=== PATIENT | male | born 1975 | race Caucasian/White ===

== ENCOUNTER 2020-07-02 15:14 | Emergency (ER) | payer BC, SELFPAY ==
[2020-07-02 15:19] VITALS: BP 164/105; PULSE 96; RESP 15; TEMP 37; O2SAT 95
--- NOTE | 2020-07-02 15:30 | DI.RAD_ITS ---
EXAM: XR FINGER LT MIDDLE CLINICAL HISTORY: deep lac. TECHNIQUE: 2D digital imaging was performed. COMPARISON: No exams were available for comparison FINDINGS: Soft tissue avulsion seen medially and there is a small sub millimeter foreign body evident. This is mid medial aspect of the 3rd-middle finger. No fracture evident this location. IMPRESSION: No fracture but laceration with presence of foreign body. DATA REPOSITORY: RADIATION DOSE DELIVERED:
[2020-07-02] MEDS: Bupivacaine 0.5% Pres-Free 30 ML VIAL IJ (15:42)
--- NOTE | 2020-07-02 16:28 | ED.GENADUL_ITS ---
Discharge Plan Disposition Patient Disposition: HOME Condition: Stable Discharge Details Clinical Impression: Laceration of left middle finger Primary Care Provider: None,None ED Provider: Efrain Morel Home Meds and New Rx's Prescriptions: No Action No Known Home Meds RF: 0 Discharge Instructions Instructions: Finger Laceration (ED) Additional Instructions: Keep sling intact dry for the next 2 days. Change dressing daily thereafter with sterile gauze. No use of left use until cleared. Please take ibuprofen over the counter. Take 600mg by mouth every 6 hours as ne eded for pain. Please take acetaminophen (tylenol) - 650mg every 6 hours by mouth as needed for pain. Do not take more than recommended. Follow-up with orthopedics. Call for him to be seen next week. Return to the emergency department for any worse part or new concerning symptoms including redness, warmth, discharge from the wound, increased pain, redness. Referrals: [facility] [Provider Group] Discharge Data Discharge Date/Time-TO BE ENTERED AT DEPARTURE: 07/02/20 16:43 Medical Decision Making 45-year-old male here with deep laceration to left third digit, flexor tendons intact, neurologically intact. Past medical record reviewed and tetanus up-to-date 2017. Consider fracture. X-ray of the finger reviewed and interpreted by radiology: No fracture but laceration with presence of foreign body. I consulted Dr. Diego, on-call orthopedics, he examined patient recommended closure and dressing with outpatient follow-up in 1 week. Digital block performed, wound irrigated with copious sterile saline, no foreign body identified, wound closed loosely. Sterile dressing applied. Superficial lacerations of his second and fourth digit were cleansed and dressed by nursing. HPI General Mode of arrival: ambulatory . Date/Time Provider Initiated Documentation: 07/02/20 15:27 . Limitations to Documentation: no limitations . Information obtained by: patient . HPI Narrative: 45-year-old male presents with chief complaint of laceration. Patient sustained laceration to his left third digit just prior to arrival. He notes he cut his finger on a steel metal machine. Laceration severe. Bleeding. Bleeding improved with pressure dressing. No associated numbness. Related Data Home Medications Medication Instructions Recorded Confirmed Unknown [No Known Home Meds] 07/02/20 07/02/20 Allergies Allergy/AdvReac Type Severity Reaction Status Date / Time Penicillins Allergy Unknown Unverified 07/02/20 15:19 General Stated Complaint: Laceration GRISEL: 3 Review of Systems Integumentary/Breasts Skin/Breast: Reports as per HPI Neurologic Neurologic: Reports as per HPI [facility] Social History Smoking/Tobacco Use Status: Current every day Smoking risk assessment performed?: Yes Alcohol Intake: current Alcohol Intake frequency: a few times a week Drug use: Occasionally Substance use type: marijuana Do you feel safe at home: Yes Do you feel safe in your relationship?: Yes Exam Const General: cooperative and no acute distress Cardio Rate: regular rate and not tachycardic Rhythm: regular rhythm Skin Trauma: abrasion (Superficial abrasion to left second and fourth digits) and laceration (4 cm curved deep laceration left third digit over PIP) Neuro General: patient alert and patient awake Sensory Exam: other (She extremity, two-point discrimination intact) Extrem Left upper extremity: hand Details: normal capillary refill, neurosensory exam normal, tendon exam normal and vascular exam Details: radial pulse present Details: 2+ Course Vital Signs Vital signs: Vital Signs Temperature 37 C 07/02/20 15:19 Pulse 96 H 07/02/20 15:19 Respiratory Rate 15 07/02/20 15:19 Blood Pressure 164/105 H 07/02/20 15:19 Pulse Oximetry 95 07/02/20 15:19 Temperature 37 C 07/02/20 15:19 Temperature Source Temporal Artery Scan 07/02/20 15:19 Pulse 96 H 07/02/20 15:19 Respiratory Rate 15 07/02/20 15:19 Respiratory Effort Non-Labored 07/02/20 15:25 Blood Pressure 164/105 H 07/02/20 15:19 Blood Pressure Position Supine 07/02/20 15:19 Pulse Oximetry 95 07/02/20 15:19 Oxygen Delivery Method Room Air 07/02/20 15:19 Oxygen Flow Rate 0 07/02/20 15:19 Pain Level 6 07/02/20 16:13 Procedures Laceration Laceration 1: Site: hand Side (If applicable): left Size (cm): 4 Description: flap Depth: simple, single layer Pre-repair: wound explored, irrigated extensively and deep structures intact Skin layer closed with: nylon Size (cm): 4-0 Number of sutures: 5 Technique: simple, interrupted Nerve Block Nerve Block 1: Time out performed: Yes Local Anesthetic: Bupivicaine 0.5% Amount of anesthesia used (mL): 4 Side: left Nerve Blocks: digital Procedure Successful: Yes Patient Tolerated Procedure: well Complications: none
== END 2020-07-02 16:43 | disposition home or self-care (01) ==
PROVIDERS: Emergency Provider Student in an Organized Health Care Education/Training Program
DX: S61.223A Laceration with foreign body of left middle finger without damage to nail, initial encounter (principal); S60.411A Abrasion of left index finger, initial encounter; S60.415A Abrasion of left ring finger, initial encounter; W31.9XXA Contact with unspecified machinery, initial encounter
CPT/HCPCS: 12002; 99281; 73140

== ENCOUNTER 2024-03-04 17:10 | Emergency (ER) | payer OTHER, SELFPAY ==
[2024-03-04 17:30] VITALS: BP 168/86; PULSE 81; RESP 15; TEMP 36.6; O2SAT 97
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
== END 2024-03-04 19:05 | disposition home or self-care (01) ==
PROVIDERS: Emergency Provider Nurse Practitioner Family
DX: M79.601 Pain in right arm (principal); F17.200 Nicotine dependence, unspecified, uncomplicated
CPT/HCPCS: 99283; 73080

== ENCOUNTER 2024-04-02 01:37 | Outpatient (CLI) | payer OTHER, SELFPAY ==
--- NOTE | 2024-04-02 07:15 | DI.MRI_ITS ---
Exam(s) MR UPPER JOINT RT WO EXAM: MR UPPER JOINT RT WO CLINICAL HISTORY: R ARM INJURY,traumatic rupture rt distal biceps tendon,s46.211a. TECHNIQUE: Multiplanar multisequence MRI was performed. COMPARISON: Plain films 04 March 2024 FINDINGS: Elbow joint: No joint effusion Bones: There is no fracture or contusion pattern. Biceps tendon: Partial tear involving approximately half of the tendon, consistent with rupture of th e short head of the biceps tendon with intact long head of the tendon at the insertion on the radial tubercle. Retraction of approximately 1 cm. Fluid surrounding the biceps tendon. Brachialis tendon: Intact. No tendinosis. Common flexor tendons: Intact. No tendinosis. Common extensor tendons: Intact. No tendinosis. Soft tissues: Unremarkable. IMPRESSION: Tear with retraction of the short head of the biceps tendon. The long head appears intact at the inse rtion. DATA REPOSITORY: al
== END 2024-04-02 01:57 ==
LOC: DI 01:38
PROVIDERS: Visit Provider Student in an Organized Health Care Education/Training Program
DX: S46.211D Strain of muscle, fascia and tendon of other parts of biceps, right arm, subsequent encounter (principal); X58.XXXD Exposure to other specified factors, subsequent encounter
CPT/HCPCS: 73221

== ENCOUNTER 2024-04-04 12:04 | Day surgery (SDC) | payer OTHER, SELFPAY ==
--- NOTE | 2024-04-04 12:11 | W.ANESPRE ---
General Info Height: 5 ft 8 in Weight: 82.554 kg Body Mass Index (BMI): 27.6 Surgical Procedure: Operation Date: 04/04/24 12:55 Proposed Procedure Side Surgeon p Distal Bicep Tendon Repair Right Ryan Hughes MD Meds Allergies and Home Medications Allergies Allergy/AdvReac Type Severity Reaction Status Date / Time Penicillins Allergy Unknown Anaphylaxis Verified 04/03/24 15:11 Home Medication ?Medication ?Instructions ?Recorded Unknown [No Known Home Meds] 07/02/20 Current Visit Medications: Current Medications Generic Name Dose Route Start Last Admin Trade Name Freq PRN Reason Stop Dose Admin Ringer's Solution 1,000 mls @ 30 mls/hr 04/04/24 06:00 IV 04/04/24 23:59 INFUSION JUDD Cefazolin Sodium/Dextrose 2 gm in 50 mls @ 100 mls/hr 04/04/24 06:00 Ancef Duplex IVPB 04/04/24 23:59 PREOP JUDD Tranexamic Acid/Sodium Chloride 1,000 mg in 100 mls @ 600 mls/hr 04/04/24 06:00 IVPB 04/04/24 23:59 PREOP JUDD IV Miscellaneous Supplies 1 each 04/04/24 06:00 Iv Access IV 04/04/24 23:59 DIRECTED JUDD Oxycodone HCl 0 mg 04/04/24 10:03 Oxycodone 5 Mg Tab PO 05/04/24 10:02 Q3H PRN PRN Pain Sodium Chloride 0 ml 04/04/24 06:00 Normal Saline Flush 10 Ml Syr IV 04/04/24 23:59 PRN PRN Sodium Chloride 0 ml 04/04/24 06:00 Normal Saline 10 Ml Vial IJ 04/04/24 23:59 DIRECTED PRN Sterile Water 0 ml 04/04/24 06:00 Water,Injection,Sterile 10 Ml Vial IJ 04/04/24 23:59 DIRECTED PRN PFSH Active Problems Active Problems: Problem Status Onset Code Traumatic rupture of right distal biceps tendon Acute S46.211A Laceration of left middle finger Acute 07/02/20 S61.213A Medical History Medical History (Updated 04/04/24 @ 00:07 by GIANNI CACERES) Traumatic amputation of right middle finger Surgical History Surgical History (Updated 04/03/24 @ 15:10 by Jamil Murray H/O wisdom tooth extraction Tobacco Smoking/Tobacco Use Status: Current every day Tobacco Type: cigarettes Alcohol Alcohol Intake: current Alcohol intake frequency: a few times a week Substance Use Substance use: Occasionally Substance use type: marijuana Vital Signs and Lab Results Lab Results Blood Type / Crossmatch: No Data to Display Complete Blood Count: No Data to Display Complete Metabolic Panel: No Data to Display Liver Function Panel: No Data to Display Coagulation Panel: No Data to Display Cardiac Panel: No Data to Display Arterial Blood Gas: No Data to Display Venous Blood Gas: No Data to Display Pancreas Panel: No Data to Display Thyroid Panel: No Data to Display Infectious Disease: No Data to Display Blood Cultures: No Data to Display Toxicology Panel: No Data to Display Anesthesia Assessment and Plan Anesthesia History Personal History: No History of Anesthesia Complications Family History: No Family History of Anesthesia Complications Implantable Cardiac Device Does patient have a Pacemaker or an ICD?: No Anesthesia Plan Resuscitation Status: Full Code Anesthesia Technique: General Anesthesia Airway Planned: Endotracheal Tube Pain Management: Surgeon and patient request nerve block Monitors Used: Standard Monitors Preoperative Comments:: 48 yo male for distal bicep repair. Sig PMHx: smoker, occ EtOH/cannabis.
== END 2024-04-04 12:05 | disposition home or self-care (01) ==
LOC: SUR 12:05
PROVIDERS: Visit Provider Student in an Organized Health Care Education/Training Program
DX: Z53.09 Procedure and treatment not carried out because of other contraindication (principal)
CPT/HCPCS: J0665; J1100; J2250; J2405; J2704

== ENCOUNTER 2024-04-11 08:45 | Day surgery (SDC) | payer OTHER, SELFPAY ==
[2024-04-11] VITALS (19 sets, daily range): BP systolic 89–151; BP diastolic 41–78; PULSE 68–84; RESP 13–19; TEMP 36.1–37.1; O2SAT 94–98; BMI 27.6
--- NOTE | 2024-04-11 07:18 | PDOC.DSDIS_ITS ---
Date of service: 04/11/24 Discharge Plan Disposition Patient Disposition: Home Condition: Stable Discharge Details Attending Provider: Ryan Hughes Primary Care Provider: None,None Home Meds and New Rx's Prescriptions: New naproxen 250 mg tablet 250 - 500 mg PO BID PRN (Reason: Moderate pain) Qty: 40 0RF oxycodone 5 mg tablet 5 - 10 mg PO Q4H PRN (Reason: Moderate to severe pain) Qty: 18 0RF Discharge Instructions Additional Instructions: Surgery: Right distal biceps tendon repair Activity: Protected use right upper extremity for about 2-3 months. Use the sling for support when out of the house for about 1 month. Otherwise, you may rest the right upper extremity at your side or on pillows. Encourage full elbow range of motion. Gentle use okay (e.g., writing, typing, eating, and drinking). Do not lift more than a couple pounds (i.e., coffee) for 6 weeks. A physical therapy prescription will be sent electronically to start about 3 weeks. PT protocol: Immediate full active range of motion okay Isometrics after 1 month Concentric strengthening after 2 months Eccentric strengthening after 3 months Prescriptions: Naproxen 250 mg take 1-2 every 12 hours with a meal as needed for moderate pain Oxycodone 5 mg take 1-2 every 4-6 hours as needed for severe pain You may use [id number] Tylenol (acetaminophen) as needed for mild pain. These pain medications may be taken all at once or in different combinations as needed. Also, recommend Colace (docusate) as a stool softener as surgery and pain medicine cause constipation. You may try [id number] diphenhydramine (Benadryl) 25-50 mg nightly as a sleep aid Dressings: Leave splint and dressing in place until follow-up. Keep clean and dry at all times. Follow-up: 04/23/24 at 2:[address] Hughes You may take off the leg compression stockings this evening at home. You may also leave them on a few days longer if you have a history of leg swelling or edema. Let us know right away if you develop any redness, drainage, fevers, chest pain, or trouble breathing. Do not drink alcohol or drive for at least 24 hours after anesthesia. Please call the office during business hours with any questions or concerns. Stand Alone Forms: Anesthesia Discharge Inst., Rosario Ahn (DSU) Referrals: Ryan Hughes MD [ [facility] STAFF PHYSICIAN] - 04/23/24 2:00 pm Discharge Orders Discharge Orders: Discharge Order (Routine); Ordered 04/11/24 Ordered By: Rojelio Peterson DS: Diagnosis Discharge Diagnosis (1) Traumatic rupture of right distal biceps tendon: Status: Acute
--- NOTE | 2024-04-11 07:45 | ROE_ITS ---
Operative Note Operative Note PRE-OP DIAGNOSIS: Subacute partial right distal biceps rupture POST-OP DIAGNOSIS: same PROCEDURE: Right distal biceps repair, CPT #34943 SURGEON: Ryan Hughes MARKETING PROJECT COORDINATOR: Rojelio Peterson ANESTHESIA TYPE: Local By Surgeon, General LMA/ETT and Primary Nerve Block Refer to Anesthesia Record ESTIMATED BLOOD LOSS: 5 COMPLICATIONS: None Patient was transported to: PACU Patient's condition: stable Implants: Arthrex distal biceps button Indications: Please see complete medical record for details. Findings: 50+ percent distal biceps tendon rupture with minimal retraction, probably intact long head with complete rupture of the short head. No significant scarring or retraction of the torn segment, which was still within the radial tuberosity bursa. Procedure Description: In the operating room, general anesthesia was induced. The patient was positioned supine on the operating room table. All bony prominences were well- padded. Preoperative antibiotics were administered. The right elbow was prepped and draped in the usual sterile fashion. The correct patient, procedure, and side of the procedure were all verified prior to incision. 20 cc 0.25% bupivacaine containing epinephrine was infiltrated about the longitudinal incision localized fluoroscopically over the radial tuberosity on the volar proximal forearm. The incision was opened and care was taken to spread and preserve small veins and nerves. Deeper tissues were spread apart and the forearm is maintained in supination while larger veins were preserved and a crossing bundle coagulated with the pronator and flexors retracted ulnarly and the supinator gently retracted radially. The distal biceps insertion on the radial tuberosity was still covered in bursa, which was opened and expose the torn stump and of at least 50% of the tendon. The remaining more proximal seg ment still had some partial and firm attachments, which were carefully dissected off the bone to preserve tendon length. The tendon and was combined and trimmed and contoured together. It was secured and prepared for fixation with FiberWire fiber loop. The end was tapered in size to fit in the planned socket. The radial tuberosity was then localized again, fluoroscopy used to confirm appropriate placement, and the spade tip drill sent just bicortically followed by unicortical socket creation with the 8 mm low-profile reamer. The reamings were removed thoroughly with copious irrigation. The FiberWire ends were then loaded in a modified tension slide fashion on the cortical button, which was passed into the socket and flipped on the far cortex with excellent fixation strength. The preloaded tensioning sutures were then used to deliver the tendon with the help of a Atlas into the socket with the elbow in moderate flexion. Creep was removed from the construct and final tensioning done with good biceps tendon repair contour and socket placement. Knots were tied, single free tail passed around the biceps tendon and backup knots tied before the tails were cut. The wound was copiously irrigated. Hemostasis was appropriate. Subcutaneous tissue was closed using a couple 2-0 Monocryl buried erupted followed by skin closure with 3-0 Monocryl running. The incision covered in skin glue and a Mepilex Band-Aid. The elbow was gently wrapped in Jelani bandage and the extremity placed into a sling. The patient awoke from anesthesia without complication and was transferred to the recovery room in a stable condition. Date of Procedure: 04/11/24
[2024-04-11] MEDS: Lactated Ringers 1,000 ML 30 ML IV (09:47)
--- NOTE | 2024-04-11 10:13 | W.ANESPRE ---
General Info Date of Service Date Performed: 04/11/24 Height: 5 ft 8 in Weight: 82.6 kg Body Mass Index (BMI): 27.6 Surgical Procedure: Operation Date: 04/11/24 09:55 Proposed Procedure Side Surgeon p Distal Bicep Tendon Repair Right Ryan Hughes MD Meds Allergies and Home Medications Allergies Allergy/AdvReac Type Severity Reaction Status Date / Time Penicillins Allergy Unknown Anaphylaxis Verified 04/11/24 09:15 Home Medication ?Medication ?Instructions ?Recorded Unknown [No Known Home Meds] 07/02/20 Current Visit Medications: Current Medications Generic Name Dose Route Start Last Admin Trade Name Freq PRN Reason Stop Dose Admin Droperidol 0.625 mg 04/11/24 09:23 Droperidol 2.5 Mg/Ml Vial IVP 05/11/24 09:22 DIRECTED PRN Ephedrine Sulfate 0 mg 04/11/24 09:23 Ephedrine 25 Mg/5 Ml Syringe IVP 05/11/24 09:22 DIRECTED PRN Fentanyl 0 mcg 04/11/24 09:23 Fentanyl 100 Mcg/2 Ml Vial IVP 05/11/24 09:22 DIRECTED PRN Hydromorphone HCl 0 mg 04/11/24 09:23 Hydromorphone 1 Mg/Ml Syr IVP 05/11/24 09:22 DIRECTED PRN Ringer's Solution 1,000 mls @ 30 mls/hr 04/11/24 06:00 04/11/24 09:47 IV 04/11/24 23:59 30 mls/hr INFUSION JUDD Administration Cefazolin Sodium/Dextrose 2 gm in 50 mls @ 100 mls/hr 04/11/24 06:00 Ancef Duplex IVPB 04/11/24 23:59 PREOP JUDD Tranexamic Acid/Sodium Chloride 1,000 mg in 100 mls @ 600 mls/hr 04/11/24 06:00 IVPB 04/11/24 23:59 PREOP JUDD IV Miscellaneous Supplies 1 each 04/11/24 06:00 Iv Access IV 04/11/24 23:59 DIRECTED JUDD Naloxone HCl 0 mg 04/11/24 09:23 Naloxone 0.4 Mg/Ml Vial IVP 05/11/24 09:22 PRN PRN Oxycodone HCl 0 mg 04/11/24 07:17 Oxycodone 5 Mg Tab PO 05/11/24 07:16 Q3H PRN PRN Pain Sodium Chloride 0 ml 04/11/24 06:00 Normal Saline Flush 10 Ml Syr IV 04/11/24 23:59 PRN PRN Sodium Chloride 0 ml 04/11/24 06:00 Normal Saline 10 Ml Vial IJ 04/11/24 23:59 DIRECTED PRN Sterile Water 0 ml 04/11/24 06:00 Water,Injection,Sterile 10 Ml Vial IJ 04/11/24 23:59 DIRECTED PRN PFSH Active Problems Active Problems: Problem Status Onset Code Traumatic rupture of right distal biceps tendon Acute S46.211A Laceration of left middle finger Acute 07/02/20 S61.213A Medical History Medical History Traumatic amputation of right middle finger Surgical History Surgical History H/O wisdom tooth extraction Tobacco Smoking/Tobacco Use Status: Current every day Tobacco Type: cigarettes Alcohol Alcohol Intake: current Alcohol intake frequency: a few times a week Substance Use Substance use: Occasionally Substance use type: marijuana Vital Signs and Lab Results Vital Signs Most Recent Vital Signs in EMR: Most Recent Vital Signs Temp Pulse Pulse Ox 37.1 C 82 98 04/11/24 09:17 04/11/24 09:17 04/11/24 09:17 Lab Results Blood Type / Crossmatch: No Data to Display Complete Blood Count: No Data to Display Complete Metabolic Panel: No Data to Display Liver Function Panel: No Data to Display Coagulation Panel: No Data to Display Cardiac Panel: No Data to Display Arterial Blood Gas: No Data to Display Venous Blood Gas: No Data to Display Pancreas Panel: No Data to Display Thyroid Panel: No Data to Display Infectious Disease: No Data to Display Blood Cultures: No Data to Display Toxicology Panel: No Data to Display Anesthesia Assessment and Plan Anesthesia History Personal History: No History of Anesthesia Complications Family History: No Family History of Anesthesia Complications Exercise Tolerance Exercise Tolerance: Metabolic Equivalents>4 Pertinent Negatives Pertinent Negatives: No Symptoms of GERD Cardiac & Pulmonary Exam Cardiac Exam: Normal S1/S2 Heart Sounds Pulmonary Exam: Clear Bilateral Breath Sounds Implantable Cardiac Device Does patient have a Pacemaker or an ICD?: No Airway Exam Known Difficult Airway: No Mallampati Class: 2 Mouth Opening: Normal (> 3cm) Thyromental Distance: Greater than 3 cm Neck Range of Motion: Full ROM Neck Circumference: Normal Teeth Condition: Removable Dentures/Plates Lower ASA Classification ASA Score: ASA 2 Emergency Case?: No NPO Status NPO Status: NPO Clears >2 hours, Solids >8 hours Anesthesia Plan Resuscitation Status: Full Code Anesthesia Technique: General Anesthesia Airway Planned: Endotracheal Tube Monitors Used: Standard Monitors
[2024-04-11] MEDS: ceFAZolin 2 GM/50 ML BAG IVPB (10:51)
[2024-04-11] MEDS: TRANEXAMIC ACID/SOD. CHL. 1,000 MG/100 ML BAG 600 MG IVPB (11:05)
[2024-04-11] MEDS: Bupivacaine 0.25% Pres-Free W/EPI 30 ML VIAL (11:27)
--- NOTE | 2024-04-11 11:31 | W.ANESNERVE ---
Nerve Block Single Injection Procedure Date and Time Date Performed: 04/11/24 Procedure Start: 10:29 Location Where Procedure Performed Procedure Location: Day Surgery Unit Reason Performed: Postoperative Analgesia Requesting Provider: Ryan Hughes Timeout Performed Timeout Performed: Yes Monitoring Used ECG, Blood Pressure, SpO2, ETCO2 and See EMR for corresponding vital signs Sterility Sterility: Hand Hygiene, Surgical Cap, Surgical Mask, Sterile Gloves and Chlorhexidine Sedation Given During Procedure Sedation Given (Indicate Dose Given): Versed IV Dose:: 3mg IVP Patient Mental Status Patient Mental Status: Sedate with meaningful communication Nerve Block 1st Nerve Block: Laterality: Right Block Type: Supraclavicular Ultrasound Image Saved?: Yes Needle / Catheter Used: 100mm SonoPlex II Local Anesthetic Bolus (Indicate Dose Given): Lidocaine used for local infiltration of skin, Injected in 3-5ml increments after negative blood aspiration and Ropivacaine 0.5% Dose:: 0.5%/25cc (125mg) Additives (Indicate Dose Given): Epinephrine to make 1:200,000 (5mcg/ml) Dose:: 125mcg and Decadron Dose:: 10mg PF Ultrasound: Sterile probe cover and gel used Nerve Stimulator: Not Used Paresthesia: None Procedure Tolerated: No Complications and Patient tolerated well Procedure Outcome: Successful Performed By: Jeffery Pizano
--- NOTE | 2024-04-11 12:35 | DI.RAD_ITS ---
Exam(s) XR ELBOW RT LIMITED EXAM: XR ELBOW RT LIMITED CLINICAL HISTORY: Traumatic rupture of right distal biceps tendon TECHNIQUE: 2D and realtime digital imaging was performed. CONTRAST MATERIAL: Refer to procedure report. COMPARISON: CR XR ELBOW RT COMPLETE from 03/04/2024 MR MR UPPER JOINT RT WO from 04/02/2024 FINDINGS: Fluoroscopy was provided for Dr. Hughes during the performance of a biceps tendon repair. Please re paul to the procedure report for complete details. Ka,r=0.19 mGy IMPRESSION: RADIATION DOSE DELIVERED: 0.0 0.0 0
--- NOTE | 2024-04-11 13:40 | W.ANESPOSTOP ---
Postoperative Evaluation Date, Time and Location Date Performed: 04/11/24 Time Performed: 13:42 Patient Location: Day Surgery Unit Vital Signs Most Recent Imported Vital Signs: Most Recent Vital Signs Temp Pulse Resp BP Pulse Ox 36.1 C L 75 16 113/60 94 04/11/24 13:37 04/11/24 13:37 04/11/24 13:37 04/11/24 13:37 04/11/24 13:37 Pain Score Most Recent Pain Score: Most Recent Pain Score Pain Level 0 04/11/24 13:37 Assessment Mental Status: Awake (Alert & Oriented to Patient Baseline) Airway and Respiratory Function: Patent airway with normal (patient baseline) respiratory exam Cardiovascular Function: Hemodynamically Stable Hydration Status: Adequately Hydrated Nausea & Vomiting: No Nausea or Vomiting Pain: Pt. Denies Any Pain Peripheral Nerve Block: Patient did not receive a nerve block
== END 2024-04-11 15:06 | disposition home or self-care (01) ==
LOC: SUR 08:46
PROVIDERS: Visit Provider Student in an Organized Health Care Education/Training Program
PROC: (CPT 24341; principal; 2024-04-11 09:45)
DX: S46.211A Strain of muscle, fascia and tendon of other parts of biceps, right arm, initial encounter (principal); X58.XXXA Exposure to other specified factors, initial encounter; G89.18 Other acute postprocedural pain
CPT/HCPCS: 24342; 64415; 76000; 73070; J0131; J0171; J0690; J1100; J2003; J2250; J2405; J2704; J2795; J3475